=== PATIENT | male | born 1960 | race Hispanic/Latino ===

== ENCOUNTER 2017-08-08 22:55 | Emergency (ER) | payer OTHER ==
[2017-08-09 00:39] VITALS: BP 159/92
[2017-08-09] MEDS ORDERED: TORADOL ONE (05:18)
[2017-08-09] MEDS ORDERED: FLEXERIL ONE (05:18)
[2017-08-09] MEDS ORDERED: FLEXERIL PO ONE (05:23)
[2017-08-09] MEDS ORDERED: TORADOL IM ONE (05:23)
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
== END 2017-08-09 07:04 | disposition home or self-care (01) ==
LOC: ED 22:55
DX: M54.5 Low back pain (principal); I10 Essential (primary) hypertension; F17.200 Nicotine dependence, unspecified, uncomplicated; Z90.49 Acquired absence of other specified parts of digestive tract; Z88.6 Allergy status to analgesic agent; V49.9XXA Car occupant (driver) (passenger) injured in unspecified traffic accident, initial encounter; Y93.89 Activity, other specified; Y99.8 Other external cause status; Y92.410 Unspecified street and highway as the place of occurrence of the external cause
CPT/HCPCS: 93005; 93010; 96372; 99282; J1885